=== PATIENT | male | born 1985 | race Caucasian/White ===

== ENCOUNTER 2024-09-15 15:11 | Emergency (ER) | payer SELFPAY ==
[~2024-09-15] VITALS: Ht 177.8 cm; Wt 85.0 kg
[2024-09-15 15:14] VITALS: O2SAT 97
[2024-09-15 19:56] LABS: CLARITY URINE TURBID (CLEAR); COLOR URINE ORANGE (YELLOW); GLUCOSE URINE NEGATIVE (NEGATIVE); KETONES URINE NEGATIVE (NEGATIVE); LEUKOCYTE ESTERASE URINE 2+ (NEGATIVE); NITRITE URINE NEGATIVE (NEGATIVE); OCCULT BLOOD URINE 3+ (NEGATIVE); PH URINE 5.5 (4.5-8.0); PROTEIN URINE 2+ (NEGATIVE)
[2024-09-15 19:57] LABS: BASOPHILS % 0.2 % (0.0-2.0); DIFFERENTIAL COMMENT 0; HEMATOCRIT. 26.6 % (42.0-52.0); HEMOGLOBIN. 8.3 g/dL (14.0-18.0); LYMPHOCYTES % 29.8 % (20.0-50.0); MEAN CORPUSCULAR HGB CONC 31.3 g/dL (31.0-37.0); MEAN CORPUSCULAR VOLUME 70.3 fL (80.0-94.0); MEAN PLATELET VOLUME 6.9 fl (7.4-10.4); MONOCYTES % 12.5 % (2.0-8.0); NEUTROPHILS % 57.5 % (40.0-76.0); PLATELET 532 x1000/uL (130-400); RED BLOOD CELL COUNT 3.78 mill/uL (4.7-6.1); WHITE BLOOD COUNT 3.3 x1000/uL (4.5-11.0)
[2024-09-15 20:06] LABS: CHLORIDE 95 mEq/L (98-107); POTASSIUM 3.6 mEq/L (3.5-5.1); SODIUM 129 mEq/L (136-145)
[2024-09-15 20:07] LABS: CALCIUM 8.9 mg/dL (8.7-10.4); CARBON DIOXIDE 26 mEq/L (21-32)
[2024-09-15 20:12] LABS: CREATININE 0.7 mg/dL (0.6-1.3); GLUCOSE 85 mg/dL (70-105); UREA NITROGEN BLOOD 14 mg/dL (9-23)
[2024-09-15 20:14] LABS: ALANINE AMINOTRANSFERASE 18 IU/L (10-49); ALBUMIN 3.7 g/dL (3.2-4.8); ASPARTATE AMINOTRANSFERASE 21 IU/L (<34); BILIRUBIN DIRECT 0.2 mg/dL (<=3.0)
[2024-09-15 20:15] LABS: BILIRUBIN TOTAL 0.5 mg/dL (0.1-1.0); PROTEIN TOTAL 8.1 g/dL (6.0-8.3)
[2024-09-15 20:23] LABS: INR 1.1; PROTHROMBIN TIME 12.2 sec (9.6-11.0)
[2024-09-15 20:45] LABS: BACTERIA URINE 2+; RBC URINE TNTC /hpf (0-2); SQUAMOUS EPITHELIAL CELL URINE FEW /lpf (RARE/1+)
[2024-09-15] MEDS ORDERED: ACYC200C31 MT (21:45)
[2024-09-15] MEDS ORDERED: MUPI15CR11 TP (21:45)
[2024-09-15] MEDS ORDERED: CLOT15CR27 TP (21:45)
[2024-09-15] MEDS ORDERED: DOXY100T2 MT (21:45)
[2024-09-15] MEDS ORDERED: EMTR1TAB11 MT (21:48)
[2024-09-15] MEDS: CEFTRIAXONE SODIUM 500MG VIAL IM ONE (22:01)
[2024-09-15 22:02] VITALS: BP 111/64; PULSE 81; RESP 18; TEMP 36.6; O2SAT 98
[2024-09-15] MEDS ORDERED: IOHEXOL-300 100 ML BOTTLE ONE (23:52)
[2024-09-17 08:08] LABS: HIV 1 ABS Reactive (Non Reactive); HIV 2 ABS Non Reactive (Non Reactive); HIV SCREEN 4G Preliminary Reactive (Non Reactive); INTERPRETATION HIV-1 Positive (.)
[2024-09-17 13:08] LABS: CHLAMYDIA TRACHOMATIS NAA Negative (Negative); NEISSERIA GONORRHOEAE NAA Negative (Negative)
== END 2024-09-15 22:07 | disposition home or self-care (01) ==
LOC: ER 15:11
DX: N48.1 Balanitis (principal); F15.90 Other stimulant use, unspecified, uncomplicated; F17.200 Nicotine dependence, unspecified, uncomplicated; Z79.899 Other long term (current) drug therapy
CPT/HCPCS: 86701; 86702; 87491; 87591; 80076; 80048; 81003; 83690; 85025; 85610; 36415; 87389; 74177; 96372; 99285; Q9967; J0696; Z7610